=== PATIENT | male | born 1995 | race Caucasian/White ===

== ENCOUNTER 2020-12-07 21:53 | Emergency (ER) | payer SELFPAY ==
[~2020-12-07] VITALS: Ht 175.3 cm; Wt 113.4 kg
[2020-12-07 21:53] VITALS: BP_SYST 128
--- NOTE | 2020-12-07 21:53 | NUR ---
PT TO [facility] BED FOR EVALUATION. PT SIGNED HIS BLOOD TEST REQUEST BY REAL ESTATE SPECIALIST AND IT WAS WITNESSED BY ER STAFF AT [id number]
--- NOTE | 2020-12-07 21:55 | NUR ---
PT BIB [employer] FOR MEDICAL CLEARANCE FOR BOOKING. PT DOES NOT CURRENTLY HAVE ANY COMPLAINTS AND IS OTHERWISE HEALTHY ACCORDING TO HIM. PT COOPERATED AND AGREED TO HAVE ARNOLDO DRAWN BY ER STAFF. CONSENT ON CHART.
--- NOTE | 2020-12-07 22:17 | NUR ---
Written and verbal consent obtained from patient for blood alcohol, name and verified by patient. Disinfected patient's skin with BETADINE that did not contain alcohol or other volatile organic compound. Collected the blood from the subject named by venipuncture, in the presence of Officer ANDRE #[id number]. Used a sterile, dry hypodermic needle and dry vacuum blood collection. Two dry vacuum blood collection was supplied by the officer named above. Withdrew a specimen of blood from LEFT ARM of the subject named above. Inverted both blood tubes several times to ensure that the preservative and anticoagulant were thoroughly mixed in the blood specimen. I initialed both blood tube labels for identification. The labeled blood tubes were handed directly to the Officer named above. The blood tubes stopper remained in place while I had possession of the blood tubes. The Officer placed tubes into envelope and sealed it in my presence. Envelope initialed by myself and Officer named above. Patient tolerated well, bandage applied, and bleeding controlled.
--- NOTE | 2020-12-07 22:35 | NUR ---
DR. WHITE AT BEDSIDE TO EVALUATE PT STATUS
[2020-12-07 22:50] VITALS: BP_SYST 128
--- NOTE | 2020-12-07 22:50 | NUR ---
Patient given written and verbal discharge instructions and verbalizes understanding. DR. CHRISTOPHER LUNA MD discussed with patient the results and treatment provided. Patient in stable condition. ID arm band removed. Patient educated on pain management and to follow up with PMD. Pain Scale 0/10. Opportunity for questions provided and answered.
== END 2020-12-07 22:50 ==
LOC: SED 21:53
DX: F10.129 Alcohol abuse with intoxication, unspecified (principal); V43.52XA Car driver injured in collision with other type car in traffic accident, initial encounter; Y93.89 Activity, other specified; Y92.89 Other specified places as the place of occurrence of the external cause; Y99.8 Other external cause status
CPT/HCPCS: 99283

== ENCOUNTER 2023-01-14 19:26 | Emergency (ER) | payer SELFPAY ==
[~2023-01-14] VITALS: Ht 175.3 cm; Wt 115.7 kg
--- NOTE | 2023-01-14 19:50 | NUR ---
PT PRESENTS TO ED WITH 2 OFFICERS, ARRESTING OFFICER IS OFFICER RADHA. PT AOX4 NAD, EVEN UNLABORED RESPIRATIONS HAND CUFFED SITTING ON CHAIR AWAITING BLOOD DRAW AND MEDICAL CLEARANCE.
--- NOTE | 2023-01-14 19:52 | NUR ---
ER at bedside examining patient.
[2023-01-14 19:55] VITALS: BP_SYST 114
--- NOTE | 2023-01-14 19:58 | NUR ---
Patient triaged and placed in waiting room. VSS and patient appears in no acute distress at this time. Accompanied by Police, awaiting available bed, and MD notified of need for MSE.
[2023-01-14 20:11] VITALS: BP_SYST 114
--- NOTE | 2023-01-14 20:15 | NUR ---
Written and verbal consent obtained from patient for blood alcohol, name and verified by patient. Disinfected patient's skin with IODINE SWAB that did not contain alcohol or other volatile organic compound. Collected the blood from the subject named by venipuncture, in the presence of Officer RADHA. Used a sterile, dry hypodermic needle and dry vacuum blood collection. Two dry vacuum blood collection was supplied by the officer named above. Withdrew a specimen of blood from LEFT HAND of the subject named above. Inverted both blood tubes several times to ensure that the preservative and anticoagulant were thoroughly mixed in the blood specimen. I initialed both blood tube labels for identification. The labeled blood tubes were handed directly to the Officer named above. The blood tubes stopper remained in place while I had possession of the blood tubes. The Officer placed tubes into envelope and sealed it in my presence. Envelope initialed by myself and Officer named above. Patient tolerated well, bandage applied, and bleeding controlled.
--- NOTE | 2023-01-14 20:16 | NUR ---
Patient given written and verbal discharge instructions and verbalizes understanding. ER MD discussed MEDICAL CLEARANCE with patient the results and treatment provided WITH POLICE OFFICERS PRESENT WHILE PT IN HAND CUFFS. Patient in stable condition. Opportunity for questions provided and answered. PT DC AT 2011 WALKED OUT WITH RADAH AND PARTNER OFFICER CUFFED.
== END 2023-01-14 20:11 ==
LOC: SED 19:26
DX: Z02.89 Encounter for other administrative examinations (principal); Z79.899 Other long term (current) drug therapy
CPT/HCPCS: 99283